=== PATIENT | female | born 1975 | race Caucasian/White ===

== ENCOUNTER 2017-09-23 12:37 | Emergency (ER) | payer BC, OTHER ==
--- NOTE | 2017-09-23 13:30 | RAD ---
LEFT ANKLE 3 VIEWS: Date: 09/23/17 HISTORY: Fall, left ankle pain. FINDINGS/IMPRESSION: The ankle mortise is maintained. No fracture or dislocation is identified. POS: [facility]
== END 2017-09-23 13:56 | disposition home or self-care (01) ==
LOC: SCSER 12:37
DX: S93.402A Sprain of unspecified ligament of left ankle, initial encounter (principal); F32.9 Major depressive disorder, single episode, unspecified; X50.1XXA Overexertion from prolonged static or awkward postures, initial encounter

== ENCOUNTER 2017-12-19 09:55 | Emergency (ER) | payer BC ==
--- NOTE | 2017-12-19 11:28 | CT ---
CT LUMBAR SPINE PERFORMED WITHOUT CONTRAST ENHANCEMENT: HISTORY: Worsening low back pain. the patient does have a history of rheumatoid arthritis but states his back pain feels worse. FINDINGS: The vertebral bodies and disk spaces are well preserved. Facets appear to be in normal alignment. B angelica mineralization appears within normal limits. I do not see any signs of any features that would s uggest rheumatoid arthritis. There is no significant periaortic adenopathy, and the visualized porti ons of the kidneys are unremarkable. Review of the disk levels show no evidence of any significant disk bulge at any of the vertebral body levels. I do not appreciate any significant canal or foraminal stenosis. The SI joint regions are unremarkable. IMPRESSION: Unremarkable CT of the lumbar spine. POS: [facility]
[2017-12-19] MEDS ORDERED: Promethazine HCl 25 MG/ML VIAL ONE (11:36)
[2017-12-19] MEDS ORDERED: Morphine 10 MG/ML VIAL ONE (11:36)
== END 2017-12-19 12:09 | disposition home or self-care (01) ==
LOC: SCSER 09:55
DX: M54.5 Low back pain (principal); G89.29 Other chronic pain; M06.9 Rheumatoid arthritis, unspecified; F41.9 Anxiety disorder, unspecified; F32.9 Major depressive disorder, single episode, unspecified; Z79.01 Long term (current) use of anticoagulants; Z79.899 Other long term (current) drug therapy
CPT/HCPCS: 72131; 96372; J2270; J2550

== ENCOUNTER 2018-05-30 00:03 | Observation (INO) | payer BC ==
[2018-05-30 01:03] LABS: #Eosinphils 0.3 thou/uL (0.0-0.7); #Lymphocytes 3.3 thou/uL (1.20-3.40); #Monocytes 1.4 thou/uL (0.11-0.59); #Neutrophils 4.7 thou/uL (1.40-6.50); %Basophils 0.5 % (0.0-1.0); %Eosinophils 2.8 % (0.0-10.0); %Lymphocytes 33.9 % (21.0-51.0); %Monocytes 14.3 % (0.0-10.0); %Neutrophils 48.5 % (42.0-75.0); Hemoglobin 12.7 g/dL (12.0-16.0); Mean Corpuscular HGB CONC 34.5 g/dL (32.0-36.0); Mean Corpuscular Hemoglobin 31.6 pg (27.0-31.0); Mean Corpuscular Volume 91.7 fL (78.0-98.0); Mean Platelet Volume 7.8 fL (7.4-10.4); Platelet Count 191 thou/uL (130-400); RBC Distribution Width 11.9 % (11.5-14.5); Red Blood Cell (RBC) Count 4.02 mill/uL (4.20-5.40); White Blood Cell (WBC) Count 9.7 thou/uL (4.8-10.8)
[2018-05-30 01:14] LABS: Bilirubin Negative (Negative); Blood, Urine Negative (Negative); Clarity CLEAR (Clear); Glucose, Urine (Dipstick) Negative (Negative); Leukocyte Negative (Negative); Nitrite Negative (Negative); Protein, Urine (Dipstick) Negative (Neg-Trace); Specific Gravity, Urine 1.006 (1.002-1.036); Urobilinogen 0.2 mg/dL (0.2-1.0)
[2018-05-30 01:15] LABS: BHCG - Serum Negative (NEGATIVE); Pregs Control Background? CLEAR/WHITE (CLR/WHITE); Pregs Control Bar Appear? YES (CONTROL BAR)
[2018-05-30 01:25] LABS: ALT (SGPT) 16 U/L (8-55); AST (SGOT) 12 U/L (5-34); Albumin 3.5 g/dL (3.5-5.0); Alkaline Phosphatase 68 U/L (40-150); Anion Gap 12 mmol/L (10-20); BUN (Urea Nitrogen) 12 mg/dL (7.0-18.7); Bilirubin, Total 0.3 mg/dL (0.2-1.2); CK (CPK) 45 U/L (29-168); Calc. Creatinine Clearance 0 mL/min (70-130); Calcium 8.5 mg/dL (7.8-10.44); Carbon Dioxide 22 mmol/L (22-29); Chloride 107 mmol/L (98-107); Estimated GFR-MDRD Greater than 90; Globulin 2.4 g/dL (2.4-3.5); Glucose 110 mg/dL (70-105); Potassium 3.4 mmol/L (3.5-5.1); Protein, Total 5.9 g/dL (6.0-8.3); Sodium 138 mmol/L (136-145)
[2018-05-30 05:36] VITALS: BMI 40.7
[2018-05-30] MEDS ORDERED: Ondansetron ODT 4 MG TAB PO PRN (08:57)
[2018-05-30] MEDS ORDERED: Ondansetron HCl/PF 4 MG/2 ML Vial IVP PRN (08:57)
[2018-05-30] MEDS ORDERED: Bisacodyl 5 MG TAB PO PRN (08:57)
[2018-05-30] MEDS ORDERED: Acetaminophen 325 MG TAB PO PRN (08:57)
[2018-05-30] MEDS ORDERED: Lorazepam 2 MG/ML VIAL SLOW IVP PRN (09:04)
[2018-05-30] MEDS ORDERED: traMADol HCl 50 MG TAB PO PRN (09:06)
[2018-05-30] MEDS ORDERED: PREDNISONE 10 MG PO PRN (09:06)
[2018-05-30] MEDS ORDERED: CERTOLIZUMAB PEGOL 400 MG SC SCH (09:15)
[2018-05-30] MEDS ORDERED: Leflunomide 10 mg Tablet PO SCH ×2 (09:45→21:00)
--- NOTE | 2018-05-30 09:52 | CT ---
PRELIMINARY REPORT/[facility]/EMERGENTY AFTER-HOURS PROCEDURE CT Head Without Intravenous Contrast EXAM DATE/TIME: 05/30/2018 2:47 AM CLINICAL HISTORY: 43 years old, female; Signs and symptoms; Other: Seizure; Patient HX: F43 presents to ed for a seizur e. PT says she was watching a movie when she felt her l shoulder twitching. PT says she felt that her whole body locked up and that she could not breathe. PT says she remembers the whole episode but does not know how long it lasted. PT says she had just gone to the bathroom and laid down before the symptoms started PT says her limbs feel heavy. PT denies current pain, denies further sym ptoms. PT denies loc. PT denies HX of seizures. PT states HX of severe ra. TECHNIQUE: Axial computed tomography images of the head/brain without intravenous contrast. COMPARISON: No relevant prior studies available. FINDINGS: Brain: No brain edema. No intracranial hemorrhage. Ventricles: Normal. No ventriculomegaly. Bones/joints: Normal. No acute fracture. Sinuses: Incidental sinus mucosal thickening present. No fluid levels to indicate sinusitis. Mastoid air cells: Normal as visualized. No mastoid effusion. Soft tissues: Normal. IMPRESSION: No acute brain findings. Thank you for allowing us to participate in the care of your patient. Dictated and Authenticated by: Boom Kemp MD 05/30/2018 3:38 AM Central Time ([place] & [place]) FINAL REPORT CT HEAD: Multiple axial tomograms obtained through the head without IV contrast. No acute abnormality. I am in agreement with the preliminary report. POS: [facility]
[2018-05-30] MEDS ORDERED: Ketorolac Tromethamine 30 MG/ML VIAL IVP PRN (10:01)
--- NOTE | 2018-05-30 11:41 | HP ---
CHIEF COMPLAINT: Left shoulder and body twitching. Historian is patient, somewhat reliable. Patient also states that boyfriend was in the room and also boyfriend is a park naturalist. We tried to reach out to the boyfriend; however, her boyfriend did not pi ck up. We will try calling him again. HISTORY OF PRESENT ILLNESS: This is a 43-year-old female with past medical history of rheumatoid art hritis, fibromyalgia, presenting with left shoulder twitching. Per the patient, yesterday, she was i n bed watching TV when she started having her left shoulder twitching. Patient states that she was n ot able to move. Her boyfriend tried to talk her out and talk her through her situation; however, sh iesha was not able to really speak back due to the fact that her muscles were twitching and she was not a ble to breathe. The patient states that she did not lose consciousness, and she remembers some parts of the episode of "seizure." Per the patient, she has never had these symptoms before. This is her first time that she ever had a situation where she was twitching and shaking. Per the patient, she also had associated symptoms of lower extremities feeling very heavy. Otherwise, the patient denied chest pain, palpitations, abdominal pain, chills, urinary incontinence, bowel incontinence, foaming o f the mouth. Patient also denied feeling dizzy during this whole process. States that she remembers that she was feeling very numb and she felt her whole body locked up. CODE STATUS: The patient is FULL CODE. PRIMARY CARE PHYSICIAN: Lupe Monroe MD REVIEW OF SYSTEMS: Reports seizures. Denies any headaches, chest pain, paresthesias, admits to shor tness of breath and denied all others including the ones stated in the HPI. PAST MEDICAL HISTORY: Significant for rheumatoid arthritis and fibromyalgia. PAST SURGICAL HISTORY: Hysterectomy in 2006, cholecystectomy in 2012, tonsillectomy, sinus procedure in 2014. FAMILY HISTORY: Dad has diabetes. Mom had osteoarthritis and hypertension, PSYCHIATRIC HISTORY: Includes anxiety and depression. SOCIAL HISTORY: The patient denies any smoking history, illicit drug use, and alcohol use. ALLERGIES: AUGMENTIN, LEVAQUIN, NEOSPORIN PENICILLINS. CURRENT MEDICATIONS: Patient takes, 1. Leflunomide 10 mg daily. 2. Gabapentin 1200 t.i.d. 3. Prednisone. The patient takes 5 mg p.r.n. or sometimes 10 mg depending on her pain. 4. Venlafaxine, patient takes 150 mg daily. 5. Klonopin. The patient takes 0.5-1 tabs b.i.d. p.r.n. for anxiety. 6. Tramadol. Patient takes 50 mg every 8 hours p.r.n. 7. Cimzia. Patient takes 400 subcu, depending on when she goes and get her subcutaneous injection. PHYSICAL EXAMINATION: VITAL SIGNS: In the ED, the patient's vitals are 130/74, pulse 103, respiratory rate of 16, temperat ure of 98.5, oxygen saturation of 95 on room air. GENERAL: Patient appears her stated age, obese, appears very somnolent, but not in any acute distres s, very pleasant. HEENT: Normocephalic, atraumatic. Pupils are equal, round, and reactive to light. Extraocular musc les are intact. No scleral icterus. Mucous membranes are moist. NECK: No JVD, no tenderness, supple, no meningeal signs. RESPIRATORY: Clear to auscultation bilaterally at the anterior and posterior lung evans. No wheezi ng, no rales, no rhonchi is appreciated. CARDIOVASCULAR: Positive S1 and S2, regular rate and rhythm. No murmurs, no gallops, no rubs apprec iated. ABDOMEN: Obese abdomen, soft, nontender, nondistended. No peritoneal signs, no rigidity, no guardin g. No abdominal mass palpated. EXTREMITIES: Upper extremities and lower extremities: 5/5 upper and lower extremity motor strength. Sensation intact. Radial pulses are intact. Dorsalis pedis pulses are intact. NEUROLOGIC: No dysmetria. Good reflexes, able to track. Good upper extremity strength and good low er extremity strength. Good sensation bilaterally in the upper extremities and lower extremities. SKIN: Warm, dry, and intact. No ulcerations noted. PSYCHIATRIC: Normal affect, alert and oriented x3. IMAGING: EKG, normal sinus rhythm, short VT interval. CT of the head, no acute process. LABORATORY DATA: WBC is 9.7, hemoglobin is 12.7, hematocrit of 36.9, platelets 191. Sodium 138, pot assium 3.4, chloride is 107, anion gap is 12, BUN is 12, creatinine 0.70, glucose of 110. Urinalysis is negative. Prolactin was 38.87. ASSESSMENT AND PLAN: This is a 43-year-old female with a significant past medical history of rheumat oid arthritis and fibromyalgia, on multiple immunosuppressants, being admitted for twitching, likely secondary to first onset seizure activity. The patient's prolactin was 38.87. At this point, we hav e consulted Neurology. We will start the patient on Keppra 500 b.i.d. We will give patient Ativan p .r.n. for any seizure activity. We have ordered EEG. If EEG is negative and Neurology sees the mary ent, and patient does not have any seizure activity overnight, the patient can possibly be discharged . We are going to hold some of the patient's medications since some of these medications can cause s eizures or can decrease the seizure threshold. Per the patient, actually she has been on most of her medications for over a year and she has never had this episode before. 1. Shortness of breath, most likely secondary to seizure activity. At this point, the patient does not have any shortness of breath. The patient is breathing well, not in distress. Oxygen saturation is 100 on room air. 2. History of rheumatoid arthritis. We will start patient on a pain medication p.r.n. We will star t the patient on some of her home medications like leflunomide, and we will hold gabapentin since donte apentin can decrease seizure threshold. 3. Fibromyalgia. We will continue patient on some of her home medications p.r.n. for pain. 4. Deep vein thrombosis and gastrointestinal prophylaxis. The patient will be encouraged to ambulat e. We will not do any GI prophylaxis. Patient could be started on a diet.
[2018-05-30] MEDS ORDERED: Gadobenate Dimeglumine 529 MG/1 ML (20ML VIAL) ONE (13:45)
--- NOTE | 2018-05-30 15:31 | MRI ---
MRI OF BRAIN WITH AND WITHOUT CONTRAST: 05/30/18 Multiplanar and multisequential imaging of brain obtained. INDICATIONS: New onset seizures. FINDINGS: ventricles have normal and position. No evidence of restricted diffusion. There is no evidence of mas s or edema. No white matter abnormality identified. No abnormal enhancement identified. Mucosal edema in the periphery of the right maxillary sinus and evidence of small mucous retention cyst in the luis or of the left maxillary antrum. IMPRESSION: Unremarkable MRI brain. POS: [facility]
[2018-05-30] MEDS ORDERED: levETIRAcetam 2,000 MG in Sodium Chloride 0.9% 100 ML IVPB SCH (21:30)
[2018-05-31] MEDS ORDERED: Potassium Chloride 20 MEQ TAB PO SCH ×2 (08:45→17:00)
[2018-05-31] MEDS ORDERED: Leflunomide 10 mg Tablet PO SCH (09:00)
[2018-05-31 12:03] VITALS: BP 131/75; TEMP 98.4
--- NOTE | 2018-05-31 13:05 | CON ---
DATE OF CONSULTATION: 05/31/2018 CONSULTING PHYSICIAN: Hospitalist service. IMPRESSION: 1. Focal seizures with left arm twitching and partial alteration of awareness. 2. History of rheumatoid arthritis. PLAN: 1. Continue Keppra 500 mg twice a day. 2. Outpatient EEG. 3. Follow up with her credit support specialist to discuss her ongoing treatment. Ms. Farnk is a 43-year-old white female with a history of rheumatoid arthritis. She presented ye sterday with seizure activity. She reports she has a sensation of left shoulder twitching. She feel s like she remains aware in the midst of the events. She was started on Keppra last night. Her init ial CT scan of the brain was unremarkable. She had some continued seizure activity yesterday evening , gave her a loading dose of 2000 mg. She has not had any further seizures through the night. She d enies any history of head injury, meningitis, encephalitis, or other neurologic problems. She was re cently started on a new biological agent for her rheumatoid arthritis last week. She uses tramadol o ccasionally. PAST MEDICAL HISTORY: Otherwise, negative. ALLERGIES: AMOXICILLIN, LEVOFLOXACIN, PENICILLIN, POTASSIUM CLAVULANATE. SOCIAL HISTORY: No tobacco or alcohol use. FAMILY HISTORY: Noncontributory. REVIEW OF SYSTEMS: No complaints of headache, nausea, vomiting, dizziness, chest pain, shortness of breath. PHYSICAL EXAMINATION: GENERAL: She is a well-nourished middle-aged woman in no distress. VITAL SIGNS: Blood pressure 118/68, pulse 100, respirations 20, temperature 98.0. HEENT: Pupils equal and reactive. Conjunctivae clear. Oropharynx clear. NECK: Supple. EXTREMITIES: No cyanosis. NEUROLOGIC EXAM: She is alert and appropriate. Her speech is fluent and clear. Her exam is nonfoca l. No abnormal movements were noted. LABORATORY STUDIES: Unremarkable CBC and chemistry panel. Her prolactin level was 38.37. Urinalysi s was clear. MRI of the brain was unremarkable. SUMMARY: This is a middle-aged woman with new onset seizures. They seem to have a focal quality, ba sed on her description. No structural abnormalities were noted on MRI. We would continue her treatm ent with Keppra. She can restart her Neurontin for management of fibromyalgia pain. Follow up with her in the office for an outpatient EEG.
--- NOTE | 2018-05-31 14:36 | DIS ---
DATE OF DISCHARGE: 05/31/2018 DISCHARGE DISPOSITION: Home. FOLLOWUP: Follow up with primary care physician, Dr. Monroe in 1 week. Follow up with Dr. Shanda stack 2 weeks. BRIEF HOSPITAL COURSE: The patient is a 43-year-old female with rheumatoid arthritis and fibromyalgi a, who presented to the hospital with left arm twitching. Please refer to the history and physical d ated 05/30/2018 for further details. The patient was admitted to the hospital with a diagnosis of new onset seizure. She received Keppra loading. The patient was evaluated by Neurology, Dr. Land. Dr. Land recommended Keppra 500 mg twice a day. MRI of the brain with contrast was unremarkable. EEG could not be done due to weekend . The patient will follow up with Dr. Land for outpatient EEG. Dr. Land has cleared the patie nt for discharge. FINAL DIAGNOSES: 1. Focal seizures (new onset seizure, started on Keppra). 2. Fibromyalgia. 3. Rheumatoid arthritis. 4. Morbid obesity with a BMI of 41. 5. Hypokalemia, replaced. The patient will benefit from a repeat potassium as outpatient. 6. Elevated prolactin at 38.37 probably secondary to seizures. Plan of care was discussed with the patient in detail. She stated understanding.
[2018-05-31] MEDS ORDERED: Gabapentin 400 MG CAP PO SCH (15:00)
[2018-05-31] MEDS ORDERED: levETIRAcetam 500 MG TAB PO SCH (21:00)
--- NOTE | 2018-06-03 12:44 | EKG ---
Test Reason : Blood Pressure : / mmHG Vent. Rate : 097 BPM Atrial Rate : 097 BPM P-R Int : 108 ms QRS Dur : 088 ms QT Int : 342 ms P-R-T Axes : 060 030 063 degrees QTc Int : 434 ms Sinus rhythm with short RI Nonspecific T wave abnormality Abnormal ECG Confirmed by BEN FERNANDEZ D.O. ([id number]), scientific publications editor KWAKU KAN ([id number]) on 06/03/2018 12:44:10 PM Referred By: Confirmed By:BEN FERNANDEZ D.O.
== END 2018-05-31 12:24 | disposition home or self-care (01) ==
LOC: ERS 00:03 → 2SW 05:17
PROVIDERS: ADMIT Internal Medicine; ATTEND Internal Medicine
DX: G40.89 Other seizures (principal); M06.9 Rheumatoid arthritis, unspecified; M79.7 Fibromyalgia; F41.8 Other specified anxiety disorders; E87.6 Hypokalemia; E22.1 Hyperprolactinemia; E66.01 Morbid (severe) obesity due to excess calories; Z68.41 Body mass index [BMI] 40.0-44.9, adult; Z79.899 Other long term (current) drug therapy; Z88.0 Allergy status to penicillin
CPT/HCPCS: 36415; 36416; 70450; 70553; 80053; 81003; 82550; 83605; 84146; 84443; 84703; 85025; 93005; 94760; 96360; 96361; 96365; 96366; 96375; 96376; A9579; G0378; J1885; J1953; J2060; J7050

== ENCOUNTER 2018-06-10 03:48 | Emergency (ER) | payer BC ==
[2018-06-10 04:40] LABS: Bilirubin Negative (Negative); Blood, Urine Negative (Negative); Clarity CLEAR (Clear); Glucose, Urine (Dipstick) Negative (Negative); Leukocyte Negative (Negative); Nitrite Negative (Negative); Protein, Urine (Dipstick) Negative (Neg-Trace); Specific Gravity, Urine 1.023 (1.002-1.036); Urobilinogen 0.2 mg/dL (0.2-1.0); pH, Urine 6.5 (5.0-9.0)
[2018-06-10 04:47] LABS: Pregnancy Test - Urine (BHCG) Negative (Negative); Pregu Control Background? CLEAR/WHITE (CLR/WHITE); Pregu Control Bar Appear? YES (CONTROL BAR); Specific Gravity 1.023 (1.002-1.036)
[2018-06-10 05:05] LABS: #Eosinphils 0.1 thou/uL (0.0-0.7); #Lymphocytes 2.1 thou/uL (1.20-3.40); #Monocytes 1.1 thou/uL (0.11-0.59); #Neutrophils 4.1 thou/uL (1.40-6.50); %Basophils 0.6 % (0.0-1.0); %Lymphocytes 27.9 % (21.0-51.0); %Monocytes 14.4 % (0.0-10.0); %Neutrophils 55.1 % (42.0-75.0); Hemoglobin 12.9 g/dL (12.0-16.0); Mean Corpuscular HGB CONC 35.1 g/dL (32.0-36.0); Mean Corpuscular Hemoglobin 32.2 pg (27.0-31.0); Mean Corpuscular Volume 91.6 fL (78.0-98.0); Mean Platelet Volume 8.5 fL (7.4-10.4); Platelet Count 214 thou/uL (130-400); RBC Distribution Width 11.4 % (11.5-14.5); Red Blood Cell (RBC) Count 4.01 mill/uL (4.20-5.40); White Blood Cell (WBC) Count 7.5 thou/uL (4.8-10.8)
[2018-06-10 05:23] LABS: ALT (SGPT) 17 U/L (8-55); AST (SGOT) 11 U/L (5-34); Albumin 3.8 g/dL (3.5-5.0); Alkaline Phosphatase 62 U/L (40-150); Anion Gap 11 mmol/L (10-20); BUN (Urea Nitrogen) 12 mg/dL (7.0-18.7); Bilirubin, Total 0.6 mg/dL (0.2-1.2); Calc. Creatinine Clearance 0 mL/min (70-130); Calcium 8.7 mg/dL (7.8-10.44); Carbon Dioxide 21 mmol/L (22-29); Chloride 109 mmol/L (98-107); Estimated GFR-MDRD Greater than 90; Globulin 2.8 g/dL (2.4-3.5); Glucose 99 mg/dL (70-105); Potassium 3.1 mmol/L (3.5-5.1); Protein, Total 6.6 g/dL (6.0-8.3); Sodium 138 mmol/L (136-145)
[2018-06-10] MEDS ORDERED: Potassium Chloride 20 MEQ TAB ONE (06:24)
== END 2018-06-10 06:31 | disposition home or self-care (01) ==
LOC: ERS 03:48
DX: R56.9 Unspecified convulsions (principal); E87.6 Hypokalemia; F41.9 Anxiety disorder, unspecified; F32.9 Major depressive disorder, single episode, unspecified; Z79.899 Other long term (current) drug therapy
CPT/HCPCS: 36415; 80053; 80177; 81003; 81025; 84146; 85025; 93005; 96374; J1953

== ENCOUNTER 2018-06-11 22:07 | Emergency (ER) | payer BC ==
[2018-06-11 22:59] LABS: #Basophils 0.1 thou/uL (0.0-0.2); #Eosinphils 0.3 thou/uL (0.0-0.7); #Lymphocytes 2.9 thou/uL (1.20-3.40); #Monocytes 1.2 thou/uL (0.11-0.59); #Neutrophils 4.1 thou/uL (1.40-6.50); %Basophils 1.2 % (0.0-1.0); %Eosinophils 3.2 % (0.0-10.0); %Lymphocytes 33.8 % (21.0-51.0); %Monocytes 13.6 % (0.0-10.0); %Neutrophils 48.2 % (42.0-75.0); Hemoglobin 13.8 g/dL (12.0-16.0); Mean Corpuscular HGB CONC 34.6 g/dL (32.0-36.0); Mean Corpuscular Volume 92.4 fL (78.0-98.0); Mean Platelet Volume 8.2 fL (7.4-10.4); Platelet Count 229 thou/uL (130-400); RBC Distribution Width 11.6 % (11.5-14.5); White Blood Cell (WBC) Count 8.5 thou/uL (4.8-10.8)
[2018-06-11 23:22] LABS: ALT (SGPT) 17 U/L (8-55); AST (SGOT) 12 U/L (5-34); Albumin 3.7 g/dL (3.5-5.0); Alkaline Phosphatase 75 U/L (40-150); Anion Gap 11 mmol/L (10-20); BUN (Urea Nitrogen) 14 mg/dL (7.0-18.7); Bilirubin, Total 0.4 mg/dL (0.2-1.2); Calc. Creatinine Clearance 0 mL/min (70-130); Calcium 8.9 mg/dL (7.8-10.44); Carbon Dioxide 21 mmol/L (22-29); Chloride 110 mmol/L (98-107); Estimated GFR-MDRD 84; Globulin 2.9 g/dL (2.4-3.5); Glucose 115 mg/dL (70-105); Potassium 3.6 mmol/L (3.5-5.1); Protein, Total 6.6 g/dL (6.0-8.3); Sodium 138 mmol/L (136-145)
[2018-06-11 23:43] LABS: Bilirubin Negative (Negative); Blood, Urine Negative (Negative); Clarity CLEAR (Clear); Glucose, Urine (Dipstick) Negative (Negative); Leukocyte Negative (Negative); Nitrite Negative (Negative); Protein, Urine (Dipstick) Negative (Neg-Trace); Urobilinogen 0.2 mg/dL (0.2-1.0); pH, Urine 5.5 (5.0-9.0)
[2018-06-11] MEDS ORDERED: levETIRAcetam In NaCl (Iso-Os) 1,500 MG in Premix Bag 1 BAG IVPB SCH (23:45)
== END 2018-06-12 00:31 | disposition home or self-care (01) ==
LOC: ERS 22:07
DX: R56.9 Unspecified convulsions (principal); F41.9 Anxiety disorder, unspecified; F32.9 Major depressive disorder, single episode, unspecified; Z79.899 Other long term (current) drug therapy
CPT/HCPCS: 36415; 80053; 81003; 82607; 82746; 85007; 85027; 87086; 96365; J1953

== ENCOUNTER 2018-06-14 17:14 | Emergency (ER) | payer BC ==
[2018-06-14 18:27] LABS: #Basophils 0.1 thou/uL (0.0-0.2); #Eosinphils 0.1 thou/uL (0.0-0.7); #Lymphocytes 2.3 thou/uL (1.20-3.40); #Monocytes 1.1 thou/uL (0.11-0.59); #Neutrophils 4.9 thou/uL (1.40-6.50); %Basophils 0.9 % (0.0-1.0); %Eosinophils 1.5 % (0.0-10.0); %Lymphocytes 26.8 % (21.0-51.0); %Neutrophils 57.8 % (42.0-75.0); Hemoglobin 13.9 g/dL (12.0-16.0); Mean Corpuscular HGB CONC 34.7 g/dL (32.0-36.0); Mean Corpuscular Volume 92.2 fL (78.0-98.0); Mean Platelet Volume 7.7 fL (7.4-10.4); Platelet Count 219 thou/uL (130-400); RBC Distribution Width 11.4 % (11.5-14.5); Red Blood Cell (RBC) Count 4.34 mill/uL (4.20-5.40); White Blood Cell (WBC) Count 8.5 thou/uL (4.8-10.8)
[2018-06-14 18:41] LABS: ALT (SGPT) 20 U/L (8-55); AST (SGOT) 13 U/L (5-34); Albumin 3.9 g/dL (3.5-5.0); Alkaline Phosphatase 65 U/L (40-150); Anion Gap 12 mmol/L (10-20); BUN (Urea Nitrogen) 13 mg/dL (7.0-18.7); Bilirubin, Total 0.6 mg/dL (0.2-1.2); Calc. Creatinine Clearance 0 mL/min (70-130); Calcium 9.1 mg/dL (7.8-10.44); Carbon Dioxide 21 mmol/L (22-29); Chloride 108 mmol/L (98-107); Estimated GFR-MDRD 84; Globulin 2.9 g/dL (2.4-3.5); Glucose 94 mg/dL (70-105); Protein, Total 6.8 g/dL (6.0-8.3); Sodium 137 mmol/L (136-145)
== END 2018-06-14 19:34 | disposition home or self-care (01) ==
LOC: ERS 17:14
DX: R56.9 Unspecified convulsions (principal); F41.9 Anxiety disorder, unspecified; F32.9 Major depressive disorder, single episode, unspecified; Z79.899 Other long term (current) drug therapy
CPT/HCPCS: 36415; 80053; 80177; 84146; 85025; 99284

== ENCOUNTER 2018-10-01 12:42 | Outpatient (CLI) | payer BC ==
--- NOTE | 2018-10-01 13:43 | MMO ---
BILATERAL SCREENING MAMMOGRAM: Date: 10/01/18 HISTORY: 43-year-old female. Routine screening mammography. COMPARISON: 08/18/17, 07/22/16, 03/30/15. TECHNIQUE: CC and MLO views of both breasts are submitted for interpretation. This patient's mammogram was reviewed with the assistance of computer-aided detection. FINDINGS: The breasts are composed of scattered fibroglandular tissue. Bilaterally, no suspicious dominant mass , architectural distortion, or suspicious calcifications. Benign-appearing calcifications are noted i n the left breast. IMPRESSION: BIRADS 2: Benign Finding(s) RECOMMENDATION: Annual mammogram. POS: [facility]
== END 2018-10-01 12:43 | disposition home or self-care (01) ==
LOC: SCSMAMMO 12:42
PROVIDERS: ATTEND Family Medicine
DX: Z12.31 Encounter for screening mammogram for malignant neoplasm of breast (principal)
CPT/HCPCS: 77067

== ENCOUNTER 2019-10-04 09:25 | Outpatient (CLI) | payer BC ==
--- NOTE | 2019-10-04 09:54 | MMO ---
Bilateral MAMMO Bilat Screen [facility]. CLINICAL HISTORY: Patient is 44 years old and is seen for screening. The patient has no family history of breast cancer. The patient has no personal history of cancer. VIEWS: The views performed were: bilateral craniocaudal with tomosynthesis and bilateral mediolateral oblique with tomosynthesis. FILMS COMPARED: The present examination has been compared to prior imaging studies performed at [facility] on 03/30/2015, 07/22/2016, 08/18/2017 and 10/01/2018. This study has been interpreted with the assistance of computer-aided detection. MAMMOGRAM FINDINGS: There are scattered fibroglandular densities. There are no suspicious masses, suspicious calcifications, or new areas of architectural distortion. IMPRESSION: THERE IS NO MAMMOGRAPHIC EVIDENCE OF MALIGNANCY. A ROUTINE FOLLOW-UP MAMMOGRAM IN 1 YEAR IS RECOMMENDED. THE RESULTS OF THIS EXAM WERE SENT TO THE PATIENT. ACR BI-RADS Category 1 - Negative MAMMOGRAPHY NOTE: 1. A negative mammogram report should not delay a biopsy if a dominant of clinically suspicious mass is present. 2. Approximately 10% to 15% of breast cancers are not detected by mammography. 3. Adenosis and dense breasts may obscure an underlying neoplasm. Reported by: VIC WATSON MD Electonically Signed: [id number]
== END 2019-10-04 09:26 | disposition home or self-care (01) ==
LOC: BICMAMMO 09:25
PROVIDERS: ATTEND Family Medicine
DX: Z12.31 Encounter for screening mammogram for malignant neoplasm of breast (principal)
CPT/HCPCS: 77063; 77067

== ENCOUNTER 2019-11-24 10:16 | Outpatient (CLI) | payer BC ==
--- NOTE | 2019-11-24 13:47 | MRI ---
MRI OF LEFT LITTLE FINGER PERFORMED WITHOUT CONTRAST ENHANCEMENT: 11/24/19 HISTORY: Boutonniere deformity of finger. A flexion deformity seen at the PIP joint of the little finger with bowstring of the flexor tendon. T here is findings that are compatible with destruction at the level of the A3 colleen and at least a pa rtial tear of the A2 colleen, although the flexor tendon is in fairly close apposition along the proxi mal aspect of the proximal phalanx and this may only represent a partial tear of the A2 colleen. There is edema change along the volar side of the capsule of the PIP joint and C1 colleen mechanism. IMPRESSION: Bowstring deformity to the flexor tendon of the little finger. Changes include volar capsular injury at the DIP joint and a complete disruption at the A3 colleen level and at least a partial tear involvi ng the more distal aspect of the A2 colleen. POS: [facility]
== END 2019-11-24 10:17 | disposition home or self-care (01) ==
LOC: SCSMRI 10:16
PROVIDERS: ATTEND Orthopaedic Surgery Hand Surgery
DX: M20.022 Boutonniere deformity of left finger(s) (principal)

== ENCOUNTER 2020-03-03 06:47 | Outpatient (CLI) | payer BC, OTHER ==
[2020-03-03 16:58] LABS: #Basophils 0.1 thou/uL (0.0-0.2); #Eosinphils 0.5 thou/uL (0.0-0.7); #Lymphocytes 4.5 thou/uL (1.20-3.40); #Monocytes 1.4 thou/uL (0.11-0.59); #Neutrophils 5.4 thou/uL (1.40-6.50); %Eosinophils 3.9 % (0.0-10.0); %Monocytes 11.5 % (0.0-10.0); %Neutrophils 45.5 % (42.0-75.0); Hemoglobin 14.2 g/dL (12.0-16.0); Mean Corpuscular HGB CONC 33.2 g/dL (32.0-36.0); Mean Corpuscular Volume 96.3 fL (78.0-98.0); Mean Platelet Volume 8.2 fL (7.4-10.4); Platelet Count 294 thou/uL (130-400); RBC Distribution Width 12.2 % (11.5-14.5); Red Blood Cell (RBC) Count 4.44 mill/uL (4.20-5.40); White Blood Cell (WBC) Count 11.8 thou/uL (4.8-10.8)
[2020-03-03 17:14] LABS: Anion Gap 12 mmol/L (10-20); BUN (Urea Nitrogen) 15 mg/dL (7.0-18.7); Calc. Creatinine Clearance 0 mL/min (70-130); Calcium 9.8 mg/dL (7.8-10.44); Carbon Dioxide 24 mmol/L (22-29); Chloride 103 mmol/L (98-107); Estimated GFR-MDRD 81; Glucose 78 mg/dL (70-105); Potassium 4.1 mmol/L (3.5-5.1); Sodium 135 mmol/L (136-145)
[2020-03-04 17:20] LABS: SARS-CoV-2 MS2 Positive; SARS-CoV-2 N Gene Negative; SARS-CoV-2 S Gene Negative; SARS-CoV-2 orf1ab Negative
== END 2020-03-03 06:48 | disposition home or self-care (01) ==
LOC: LABBT 06:47
PROVIDERS: ATTEND Orthopaedic Surgery Hand Surgery
DX: Z01.812 Encounter for preprocedural laboratory examination (principal); Z11.59 Encounter for screening for other viral diseases; M19.042 Primary osteoarthritis, left hand; M20.022 Boutonniere deformity of left finger(s)
CPT/HCPCS: 80048; 85025; 87635; U0003

== ENCOUNTER 2020-03-07 07:46 | Day surgery (SDC) | payer BC ==
[2020-03-03 13:55] VITALS: BMI 39.4
[2020-03-07] MEDS ORDERED: Midazolam HCl 2 mg/2 ml Vial ONE ×3 (09:57→12:57)
[2020-03-07] MEDS ORDERED: Fentanyl 100 MCG/2 ML VIAL ONE ×4 (09:57→14:30)
[2020-03-07] MEDS ORDERED: Betamet Acet/Betamet Na Ph 30 MG/5 ML VIAL ONE (10:06)
[2020-03-07] MEDS ORDERED: Bacitracin Zinc Ointment 30 gm TUBE ONE (10:06)
[2020-03-07] MEDS ORDERED: Bupivacaine PF 0.5% 30 ML VIAL ONE ×2 (10:06→13:10)
[2020-03-07] MEDS ORDERED: Scopolamine 1.5 mg/72 hour Patch ONE (10:06)
[2020-03-07] MEDS ORDERED: Vancomycin 1.5 GRAM/300 ML BAG ONE (10:27)
[2020-03-07] MEDS ORDERED: Dexamethasone 20 MG/5 ML VIAL ONE (13:04)
[2020-03-07] MEDS ORDERED: PROPOFOL 200 MG/20 ML VIAL ONE (13:04)
[2020-03-07] MEDS ORDERED: Bupivacaine HCl 0.5%/Epinephrine 1:200,000/PF 30 ml Vial ONE (13:04)
[2020-03-07] MEDS ORDERED: Lidocaine 1% PF 5 ML VIAL ONE (13:04)
[2020-03-07] MEDS ORDERED: Ondansetron PF 4 MG/2 ML Vial ONE (13:04)
[2020-03-07] MEDS ORDERED: Neomycin-Polymyxin 1 ML AMP ONE (13:09)
--- NOTE | 2020-03-07 17:22 | RAD ---
LEFT FINGER THRE VIEW: 03/07/20 HISTORY: ORIF COMPARISON: Exam 11/24/19. FINDINGS: Multiple fluoroscopic images were obtained. IMPRESSION: Fluoroscopy for surgical purposes. POS: [facility]
[2020-03-07] MEDS ORDERED: Esmolol 100 MG/10 ML VIAL ONE (17:32)
[2020-03-07] MEDS ORDERED: HYDROcodone/Acetaminophen 5/325 mg Tablet ONE (18:22)
--- NOTE | 2020-03-08 11:02 | OP ---
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 PROCEDURES PERFORMED: 1. C-arm supervision. 2. Left small finger collateral ligament repair. 3. Ulnar proximal phalangeal joint capsulotomy, volar proximal phalangeal joint capsulotomy. 4. Extensor tenotomy with Boutonniere repair. 5. Intrinsic release. 6. PIP joint arthroplasty with double-zero implant. ESTIMATED BLOOD LOSS: 20 mL. TOURNIQUET TIME: 120 minutes at 225 mmHg pressure. SPECIMENS: No specimens sent. FINDINGS: 60% proximal phalanx base and 40% middle phalanx base degenerative change with chondral loss secondary to inflammatory problem with asymmetrical ulna greater than radial loss. DESCRIPTION OF PROCEDURE: After successful general endotracheal anesthesia, the limb was prepped and draped. C-arm brought to the field to confirm the joint and we saw the true instability of the radial collateral ligament that was grade 3. We then also saw the I could not extend her finger beyond -50 degrees of extension at the PIP joint, so after exsanguinating the limb, inflating the tourniquet to 225 mmHg pressure, made a zigzag incision, Nannette type, centered on the PIP joint, carried through skin and subcutaneous tissue and protected neurovascular bundle, dissected down until we could see the volar plate and checkrein ligaments. We released the volar plate, checkrein ligaments, and the volar capsule until we could achieve 0 degree extension without any spring back. We then released the tourniquet, and saw that she had excellent blood flow, irrigated the area, and then closed the palmar incision with interrupted 5-0 nylon in a simple pattern. We turned our attention to now the dorsal incision where are were able to perform a modified zigzag incision beginning 5 mm distal to the PIP joint, carried through skin and subcutaneous tissue. We dissected down to the collateral ligament, saw marked laxity of radial collateral ligament and tight ulnar collateral ligament. We then visualized the proximal intrinsics and released them, radial and ulnar using a slightly triangular shape excision. At this point, we could see the patient had a slightly lax extensor mechanism. The plan was to shorten it, but because of the erosive changes at the joint, we then prepared to perform arthroplasty. A V-shaped incision was made in the extensor mechanism. We visualized the joint, shotgun it to 90 degrees and then made a resection parallel to the joint with a sagittal saw blade of 5 mm wide back to the point where the collaterals would enter on the proximal phalanx. We then tagged the radial collateral ligament for repair, the ulnar collateral ligament was released as well. We then used a ray and a rongeur to remove 1 mm of chondral surface from the base of the middle phalanx and now we had a balanced joint. Again, we could achieve full extension. We then placed the starter awl, inside the canal proximally and distally under C-arm supervision, it was centered. We then noticed, however, that we had to use a ray to widen the canal with a 2 mm ray, we could not get the distal broach all the way inside the canal, so we then created approximately 4 mm cut space and this was enough room to place a double-zero prosthesis. It was well balanced. We then drilled a hole in the radial collateral ligament future origin site and then transferred it to this bony indentation and sutured with a heavy 4-0 Prolene. We then repaired the ulnar collateral ligament after slightly tight. With 7-0 Prolene, the joint was well balanced with no instability or whatsoever on the radial collateral ligament, ulnar collateral ligament final prosthesis in place. We then shortened the extensor mechanism at both transverse limbs by 1 mm, gave us 2 mm of shortening, repaired it primarily with a buried [id number] 4-0 Prolene and then released the tourniquet. Then, we obtained hemostasis. We closed the skin with interrupted 4-0 nylon in a simple pattern, had 0 degrees extension and placed the patient in a 5 mm splint with the MP joints at 60-degree flexion and PIP in full extension. The patient left the operating room without evidence of anesthetic or operative complication. Job ID: [id number]
== END 2020-03-07 18:45 | disposition home or self-care (01) ==
LOC: SDC 07:46
PROVIDERS: ATTEND Orthopaedic Surgery Hand Surgery
PROC: 0LQ80ZZ Repair Left Hand Tendon, Open Approach (ICD-10-PCS; principal; 2020-03-07)
PROC: 0RQX0ZZ Repair Left Finger Phalangeal Joint, Open Approach (ICD-10-PCS; principal; 2020-03-07)
DX: M19.042 Primary osteoarthritis, left hand (principal); M20.022 Boutonniere deformity of left finger(s); Z79.899 Other long term (current) drug therapy; Z88.0 Allergy status to penicillin; Z88.1 Allergy status to other antibiotic agents; Z88.8 Allergy status to other drugs, medicaments and biological substances
CPT/HCPCS: 76000; C1776; J0670; J0690; J0702; J1100; J2001; J2250; J2405; J2704; J3010; J3370; S0020

== ENCOUNTER 2020-08-22 15:06 | Outpatient (CLI) | payer BC | END 2020-08-22 15:07 | disposition home or self-care (01) | LOC: CTENTCT 15:06 | PROVIDERS: ATTEND Otolaryngology Plastic Surgery within the Head & Neck | DX: J32.8 Other chronic sinusitis (principal) | CPT/HCPCS: 70486 ==

== ENCOUNTER 2021-05-18 12:37 | Outpatient (CLI) | payer BC | END 2021-05-18 12:38 | disposition home or self-care (01) | LOC: SCSRAD 12:37 | PROVIDERS: ATTEND Physician Assistant | DX: M54.5 Low back pain (principal) | CPT/HCPCS: 72100 ==